=== PATIENT | female | born 1995 | race African-American/Black ===

== ENCOUNTER 2021-04-08 07:16 | Emergency (ER) | payer OTHER ==
[~2021-04-08] VITALS: Ht 165.1 cm; Wt 65.9 kg
[2021-04-08 08:40] LABS: BASO % 0.6 % (0.0-1.0); EOS % 0.8 % (0.0-3.0); HEMATOCRIT 41.6 % (36.0-47.0); HEMOGLOBIN 13.4 g/dl (12.0-15.5); LYMPH # 1.7 10^3/uL (1.5-5.0); LYMPH % 48.9 % (24.0-44.0); MEAN CORPUSCULAR HGB CONC 32.2 g/dl (32.0-36.5); MONO # 0.4 10^3/uL (0.0-0.8); MONO % 10.1 % (2.0-8.0); NEUTROPHILS # 1.4 10^3/uL (1.5-8.5); NEUTROPHILS % 39.6 % (36.0-66.0); PLATELET COUNT, AUTOMATED 207 10^3/uL (150-450); RED BLOOD COUNT 4.62 10^6/uL (4.00-5.40); WHITE BLOOD COUNT 3.6 10^3/uL (4.0-10.0)
[2021-04-08 09:00] LABS: RSV AMPLIFICATION NEGATIVE (NEGATIVE)
[2021-04-08 09:01] LABS: BLOOD UREA NITROGEN 8 MG/DL (7-18); CARBON DIOXIDE LEVEL 27 MEQ/L (21-32); CHLORIDE LEVEL 109 MEQ/L (98-107); CREATININE FOR GFR 0.72 MG/DL (0.55-1.30); GLOMERULAR FILTRATION RATE > 60.0 (>60); GLUCOSE, FASTING 84 MG/DL (70-100); POTASSIUM SERUM 4.5 MEQ/L (3.5-5.1); SODIUM LEVEL 141 MEQ/L (136-145)
--- NOTE | 2021-04-08 09:22 | REP ---
INDICATION: chills, hemoptysis. COMPARISON: No comparison chest x-ray. TECHNIQUE: Two views.. FINDINGS: The lungs are well inflated and free of infiltrate. The pleural angles are sharp. The heart size is normal. Pulmonary vasculature is not increased. No significant bony abnormality is seen. IMPRESSION: Negative chest x-ray. <Electronically signed by Guillermo Wall > 04/08/21 0919
[2021-04-08] MEDS ORDERED: NS 1,000 ML IV ONE (09:45)
[2021-04-08 10:12] LABS: HCG, SERUM QUALITATIVE NEGATIVE (NEGATIVE)
[2021-04-08] MEDS ORDERED: ISOVUE-370 76% 100ML VIAL As Ordered ONE (10:22)
--- NOTE | 2021-04-08 11:27 | REP ---
INDICATION: chest pain, hemoptysis, + d-dimer COMPARISON: None. TECHNIQUE: CT angiography of the chest after the intravenous administration of 75 cc Isovue 370 attention pulmonary arteries. FINDINGS: There is excellent visualization of the pulmonary arterial vasculature. No focal filling defects are present that would be considered consistent with acute pulmonary emboli. There is no mediastinal or hilar adenopathy. There is a small amount of soft tissue density in the anterior mediastinum splaying the anterior junction line. There are no pleural or pericardial effusions. The imaged upper abdomen and imaged osseous structures are within normal limits. Evaluation of the lung irvin shows no abnormal nodules, masses, or opacities. IMPRESSION: 1. There is no pulmonary embolism. 2. Small amount of soft tissue in the anterior mediastinum, as described above, likely representing a small amount of residual thymic tissue. <Electronically signed by Colt Neumann > 04/08/21 112
[2021-04-08] MEDS ORDERED: VENTAER INH (11:53)
[2021-04-08] MEDS ORDERED: BENZ200C70 PO (11:53)
[2021-04-08 12:14] VITALS: BP 125/72
--- NOTE | 2021-04-08 14:49 | ED PDOC ---
Post-Departure Follow-Up radiology report faxed to [facility] Jo Wing MD Apr 08, 2021 14:49
== END 2021-04-08 12:14 | disposition home or self-care (01) ==
LOC: M ED 07:16
DX: R04.2 Hemoptysis (principal)
CPT/HCPCS: 71046; 71275; 80048; 84703; 85025; 85379; 87631; 96360; 99284; Q9967

== ENCOUNTER 2021-07-24 11:59 | Emergency (ER) | payer OTHER ==
[~2021-07-24] VITALS: Ht 165.1 cm; Wt 63.1 kg
[~2021-07-24 11:59] MED LIST: BENZ200C70 PO; VENTAER INH
--- OUTSIDE RECORDS SUMMARY | 2021-07-24 12:06 | CCD | Continuity of Care Document ---
Author Author Arcelia BORREGO M.D. Organization Unknown Address [address] [place] [address] Phone [phone] Care Team Providers Care Clam Bed Worker Name Role Phone TinaSheba AUTM [phone] AUTM Unavailable Problems Description No Information Available Social History Type Date Description Comments Sex Unknown Tobacco Use Start: Unknown Patient has never smoked Smoking Status Reviewed: 06/28/21 Patient has never smoked Allergies and adverse reactions Description No Known Drug Allergies Medications Active Medications SIG Qnty Indications Ordering Provide r Date Advair Diskus 500-50mcg/Dose Aeros ol 1 puff inhaled twice a day 60units J45.40 Milvia Borrego M.D. Singulair 10mg Tablets 1 by mouth every night 30tabs J45.40 Milvia Borrego M.D. 06/28/2021 Proair HFA 108(90Base) mcg/Act Aer osol 2 puffs four times a day as needed Unknown Benzonatate 100mg Capsules take one capsule by mouth three times a day as needed for cough Unknown Vitamin D 50mcg (2000 Ut) Capsules 1 tab by mouth every day Unknown History Medications Advair Diskus 250-50mcg/Dose Aeros ol 1 puff inhaled twice a day 60units J45.40 Milvia Borrego M.D. - 06/28/2021 Pantoprazole Sodium 20mg Tablets D R 1 tab by mouth every day 14tabs J45.40 Milvia Borrego M.D. 04/29/20 21 - 06/28/2021 Immunizations Description No Information Available Vital Signs Date Vital Result Comment 06/28/2021 2:23pm BP Systolic 112 mmHg BP Diastolic 64 mmHg Heart Rate 74 /min O2 % BldC Oximetry 100 % Height 65 inches 5'5" Weight 147.12 lb BMI (Body Mass Index) 24.5 kg/m2 [place] Body Weight 125 lb Asthma Control Test 8 Weight 66.736 kg BSA (Body Surface Area) 1.74 m2 04/29/2021 10:10am BP Systolic 112 mmHg BP Diastolic 66 mmHg Heart Rate 66 /min O2 % BldC Oximetry 100 % Height 65 inches 5'5" Weight 147.00 lb BMI (Body Mass Index) 24.5 kg/m2 [place] Body Weight 125 lb Weight 66.679 kg BSA (Body Surface Area) 1.74 m2 Results Test Acquired Date Facility Test Result H/L Range Note FVL/[place] 06/28/2021 [employer] PDFReport [id number] <SEE NOTE> 1 FVC-Pred 3.91 L FVC-Pre 3.02 L FVC-%Pred-Pre 77 L FVC-LLN 3.19 L Fev1-Pred 3.38 L Fev1-Pre 2.63 L Fev1-%Pred-Pre 77 L Fev1-LLN 2.78 L Fev6-Pred 3.90 L Fev6-Pre 3.02 L Fev6-%Pred-Pre 77 L Fev6-LLN 3.20 L Uas9knn-Jrom 86 % Rli8eko-Inf 87 % Twj7onn-%Pred-Pre 101 % Imv3gtv-IQA 76 % Eal8ndk-Yvzi 100 % Mwl1mel-Baa 100 % Wqd4kbp-%Pred-Pre 100 % FEFMax-Pred 7.05 L/E/sec FEFMax-Pre 3.74 L/E/sec FEFMax-%Pred-Pre 53 L/E/sec FEFMax-LLN 5.28 L/E/sec Qnr3716-Wnuk 3.73 L/E/sec Rzz7682-Hrt 3.10 L/E/sec Zbl7153-%Pred-Pre 83 L/E/sec Eeu2737-PGA 2.45 L/E/sec ExpTime-Pre 6.33 sec Lns7kdc4-Poof 87 % Leh7cwm9-Lcc 87 % Ufd1qtb7-%Pred-Pre 100 % Lcc3gko6-HDN 78 % FVL/Ben 04/29/2021 [employer] PDFReport SEE IMAGE FVC-Pred 3.91 L FVC-Pre 2.80 L FVC-%Pred-Pre 71 L FVC-LLN 3.19 L Fev1-Pred 3.38 L Fev1-Pre 2.73 L Fev1-%Pred-Pre 80 L Fev1-LLN 2.78 L Fev6-Pred 3.90 L Fev6-Pre 2.80 L Fev6-%Pred-Pre 71 L Fev6-LLN 3.20 L Jru4hiy-Debp 86 % Ozi0xxn-Zkw 97 % Iau0vyo-%Pred-Pre 113 % Doo2hxx-MYY 76 % Ebs4jez-Ifil 100 % Pje5oiy-Qfv 100 % Jaj1roj-%Pred-Pre 100 % FEFMax-Pred 7.05 L/E/sec FEFMax-Pre 4.87 L/E/sec FEFMax-%Pred-Pre 69 L/E/sec FEFMax-LLN 5.28 L/E/sec Kbt2426-Wvhx 3.73 L/E/sec Rbd0143-Pgt 3.53 L/E/sec Vhy4757-%Pred-Pre 94 L/E/sec Rxt6911-SVD 2.45 L/E/sec ExpTime-Pre 1.91 sec Suy3ino4-Osfk 87 % Zjd9tcz8-Vhr 97 % Iaw1vwf2-%Pred-Pre 112 % Iao8mtj7-GRG 78 % 1 [id number] Procedures Date Code Description Status 04/29/2021 22234 Office/Outpatient New Moderate M DM 45-59 Minutes Completed 04/29/2021 62784 Spirometry Completed Medical Devices Description No Information Available Encounters Type Date Location Provider Dx Diagnosis Office Visit 04/29/2021 10:00a [facility] K Milvia kingston M.D. J45.40 Moderate persistent asthma, uncomplicated R91.8 Other nonspecific abnormal f inding of lung field Assessments Date Code Description Provider 06/28/2021 J45.40 Moderate persistent asthma, unco mplicated Milvia Borrego M.D. 06/28/2021 R91.8 Other nonspecific abnormal findi ng of lung field Milvia Borrego M.D. 04/29/2021 J45.40 Moderate persistent asthma, unco mplicated Milvia Borrego M.D. 04/29/2021 R91.8 Other nonspecific abnormal findi ng of lung field Milvia Borrego M.D. Plan of Treatment Future Appointment(s):* 09/27/2021 1:00 pm - Milvia Borrego M.D. at [facility] 06/28/2021 - Milvia Borrego M.D.* J45.40 Moderate persistent asthma, uncomplicated * R91.8 Other nonspecific abnormal finding of lung field * * New Medication:* Advair Diskus 500-50 mcg/Dose * Singulair 10 mg * New Labs:* Rast/Ige, Pulmonary, Ordered: 06/28/21 * CBC With Differential, Ordered: 06/28/21 * Follow up:* Follow-up in 2-3 mo with ACT Functional Status Description No Information Available Mental Status Description No Information Available Referrals Refer to Dr Reason for Referral Status Appt Date Milvia Borrego M.D. ([phone] CONSULT DX: CHEST PAIN SOB HEMOPTYSIS) Scheduled 04/29/2021 [facility], Pulmonary [address] [place], [place] [address] [phone] Milvia Borrego M.D. ([phone] OFFICE VISIT DX: CHEST RENAY N SOB HEMOPTYSIS) Scheduled 04/29/2021 [facility], Pulmonary [address] [place], [place] [address] [phone]
--- OUTSIDE RECORDS SUMMARY | 2021-07-24 12:06 | CCD | Continuity of Care Document ---
Author Author Arcelia BORREGO M.D. Organization Unknown Address [address] [place] [address] Phone [phone] Care Team Providers Care Voice Intercept Technician Name Role Phone TinaSheba AUTM [phone] AUTM Unavailable Problems Description No Information Available [...] lb BMI (Body Mass Index) 24.5 kg/m2 [place] Body Weight 125 lb Asthma Control Test 8 Weight 66.736 kg BSA (Body Surface Area) 1.74 m2 04/29/2021 10:10am BP Systolic 112 mmHg BP Diastolic 66 mmHg Heart Rate 66 /min O2 % BldC Oximetry 100 % Height 65 inches 5'5" Weight 147.00 lb BMI (Body Mass Index) 24.5 kg/m2 [place] Body Weight 125 lb Weight 66.679 kg BSA (Body Surface Area) 1.74 m2 Results Test Acquired Date Facility Test Result H/L Range Note FVL/[place] 06/28/2021 [employer] PDFReport [id number] <SEE NOTE> 1 FVC-Pred 3.91 L FVC-Pre 3.02 L FVC-%Pred-Pre 77 L FVC-LLN 3.19 L Fev1-Pred 3.38 L Fev1-Pre 2.63 L Fev1-%Pred-Pre 77 L Fev1-LLN 2.78 L Fev6-Pred 3.90 L Fev6-Pre 3.02 L Fev6-%Pred-Pre 77 L Fev6-LLN 3.20 L Hjo8kqg-Mvle 86 % Btw0atl-Cud 87 % Bwn5xte-%Pred-Pre 101 % Vtq8bci-GST 76 % Kgu6whi-Etsw 100 % Ntp6qnp-Ggb 100 % Rgf8wca-%Pred-Pre 100 % FEFMax-Pred 7.05 L/E/sec FEFMax-Pre 3.74 L/E/sec FEFMax-%Pred-Pre 53 L/E/sec FEFMax-LLN 5.28 L/E/sec Xrc1133-Zgbv 3.73 L/E/sec Iul5692-Fja 3.10 L/E/sec Exr5685-%Pred-Pre 83 L/E/sec Lng7604-LEP 2.45 L/E/sec ExpTime-Pre 6.33 sec Aea5wht5-Tcai 87 % Bst9gue5-Khq 87 % Evd8cqa6-%Pred-Pre 100 % Wyy0wil6-PSW 78 % FVL/Ben 04/29/2021 [employer] PDFReport SEE IMAGE FVC-Pred 3.91 L FVC-Pre 2.80 L FVC-%Pred-Pre 71 L FVC-LLN 3.19 L Fev1-Pred 3.38 L Fev1-Pre 2.73 L Fev1-%Pred-Pre 80 L Fev1-LLN 2.78 L Fev6-Pred 3.90 L Fev6-Pre 2.80 L Fev6-%Pred-Pre 71 L Fev6-LLN 3.20 L Pvf9phq-Rplh 86 % Yux0hjp-Uxg 97 % Kxp8izz-%Pred-Pre 113 % Ccp6swe-WES 76 % Cyr8nzf-Ecoz 100 % Ivk7gtd-Dps 100 % Oiy8xjf-%Pred-Pre 100 % FEFMax-Pred 7.05 L/E/sec FEFMax-Pre 4.87 L/E/sec FEFMax-%Pred-Pre 69 L/E/sec FEFMax-LLN 5.28 L/E/sec Oci0669-Tzqz 3.73 L/E/sec Khr8999-Tdy 3.53 L/E/sec Kqi4969-%Pred-Pre 94 L/E/sec Adn1583-JGA 2.45 L/E/sec ExpTime-Pre 1.91 sec Vln2dcm8-Vhwe 87 % Ief6pbm9-Icb 97 % Xkj9fbx2-%Pred-Pre 112 % Gzi7lqe6-UWO 78 % 1 [id number] Procedures Date Code Description Status 04/29/2021 23743 Office/Outpatient New Moderate M DM 45-59 Minutes Completed 04/29/2021 44669 Spirometry Completed Medical Devices Description No Information Available Encounters Type Date Location Provider Dx Diagnosis Office Visit 04/29/2021 10:00a [facility] K Milvia kingston M.D. J45.40 Moderate [...] 1:00 pm - Milvia Borrego M.D. at [facility] 06/28/2021 - Milvia Borrego M.D.* J45.40 [...] Referral Status Appt Date Milvia Borrego M.D. ([phone] CONSULT DX: CHEST PAIN SOB HEMOPTYSIS) Scheduled 04/29/2021 [facility], Pulmonary [address] [place], [place] [address] [phone] Milvia Borrego M.D. ([phone] OFFICE VISIT DX: CHEST RENAY N SOB HEMOPTYSIS) Scheduled 04/29/2021 [facility], Pulmonary [address] [place], [place] [id number] [phone]
--- OUTSIDE RECORDS SUMMARY | 2021-07-24 12:06 | CCD | Continuity of Care Document ---
Author Author Arcelia BORREGO M.D. Organization Unknown Address [address] [place] [address] Phone [phone] Care Team Providers Care Coffee Weigher Name Role Phone TinaSheba AUTM [phone] AUTM Unavailable Problems Description No Information Available [...] lb BMI (Body Mass Index) 24.5 kg/m2 [place] Body Weight 125 lb Asthma Control Test 8 Weight 66.736 kg BSA (Body Surface Area) 1.74 m2 04/29/2021 10:10am BP Systolic 112 mmHg BP Diastolic 66 mmHg Heart Rate 66 /min O2 % BldC Oximetry 100 % Height 65 inches 5'5" Weight 147.00 lb BMI (Body Mass Index) 24.5 kg/m2 [place] Body Weight 125 lb Weight 66.679 kg BSA (Body Surface Area) 1.74 m2 Results Test Acquired Date Facility Test Result H/L Range Note FVL/[place] 06/28/2021 [employer] PDFReport [id number] <SEE NOTE> 1 FVC-Pred 3.91 L FVC-Pre 3.02 L FVC-%Pred-Pre 77 L FVC-LLN 3.19 L Fev1-Pred 3.38 L Fev1-Pre 2.63 L Fev1-%Pred-Pre 77 L Fev1-LLN 2.78 L Fev6-Pred 3.90 L Fev6-Pre 3.02 L Fev6-%Pred-Pre 77 L Fev6-LLN 3.20 L Eoc6fws-Xdbj 86 % Ffe0ljv-Qau 87 % Dvc4arw-%Pred-Pre 101 % Dik4kon-LUC 76 % Rvg5qer-Xgpu 100 % Vgf1qgf-Jsn 100 % Vog1adm-%Pred-Pre 100 % FEFMax-Pred 7.05 L/E/sec FEFMax-Pre 3.74 L/E/sec FEFMax-%Pred-Pre 53 L/E/sec FEFMax-LLN 5.28 L/E/sec Lnn8286-Absj 3.73 L/E/sec Sut2499-Dxa 3.10 L/E/sec Wcg8464-%Pred-Pre 83 L/E/sec Xbq8762-JEM 2.45 L/E/sec ExpTime-Pre 6.33 sec Kdm6uiz0-Mqex 87 % Pas7qzp6-Vuy 87 % Paf5ohf1-%Pred-Pre 100 % Xro9ukh6-LKT 78 % FVL/Ben 04/29/2021 [employer] PDFReport SEE IMAGE FVC-Pred 3.91 L FVC-Pre 2.80 L FVC-%Pred-Pre 71 L FVC-LLN 3.19 L Fev1-Pred 3.38 L Fev1-Pre 2.73 L Fev1-%Pred-Pre 80 L Fev1-LLN 2.78 L Fev6-Pred 3.90 L Fev6-Pre 2.80 L Fev6-%Pred-Pre 71 L Fev6-LLN 3.20 L Gjr8vco-Kypu 86 % Vsx6rar-Zwv 97 % Ynw2uxs-%Pred-Pre 113 % Ljy8zdj-EXT 76 % Yev5jwp-Hvmq 100 % Xos6mio-Aer 100 % Bry8eoe-%Pred-Pre 100 % FEFMax-Pred 7.05 L/E/sec FEFMax-Pre 4.87 L/E/sec FEFMax-%Pred-Pre 69 L/E/sec FEFMax-LLN 5.28 L/E/sec Rsh4956-Mtwy 3.73 L/E/sec Iio3454-Xow 3.53 L/E/sec Iwb0582-%Pred-Pre 94 L/E/sec Xcd8408-YKU 2.45 L/E/sec ExpTime-Pre 1.91 sec Vaj3ual4-Hfpm 87 % Uxy6mlc5-Ldx 97 % Nfv6uvn6-%Pred-Pre 112 % Zoo6fqc4-GGD 78 % 1 [id number] Procedures Date Code Description Status 04/29/2021 66642 Office/Outpatient New Moderate M DM 45-59 Minutes Completed 04/29/2021 93913 Spirometry Completed Medical Devices Description No Information Available Encounters Type Date Location Provider Dx Diagnosis Office Visit 04/29/2021 10:00a [facility] K Milvia kingston M.D. J45.40 Moderate [...] 1:00 pm - Milvia Borrego M.D. at [facility] 06/28/2021 - Milvia Borrego M.D.* J45.40 [...] Referral Status Appt Date Milvia Borrego M.D. ([phone] CONSULT DX: CHEST PAIN SOB HEMOPTYSIS) Scheduled 04/29/2021 [facility], Pulmonary [address] [place], [place] [address] [phone] Milvia Borrego M.D. ([phone] OFFICE VISIT DX: CHEST RENAY N SOB HEMOPTYSIS) Scheduled 04/29/2021 [facility], Pulmonary [address] [place], [place] [address] [phone]
--- OUTSIDE RECORDS SUMMARY | 2021-07-24 12:06 | CCD | Continuity of Care Document ---
Author Author Arcelia BORREGO M.D. Organization Unknown Address [address] [place] [address] Phone [phone] Care Team Providers Care Food Service Order Clerk Name Role Phone TinaSheba AUTM [phone] AUTM Unavailable Problems Description No Information Available [...] lb BMI (Body Mass Index) 24.5 kg/m2 [place] Body Weight 125 lb Asthma Control Test 8 Weight 66.736 kg BSA (Body Surface Area) 1.74 m2 04/29/2021 10:10am BP Systolic 112 mmHg BP Diastolic 66 mmHg Heart Rate 66 /min O2 % BldC Oximetry 100 % Height 65 inches 5'5" Weight 147.00 lb BMI (Body Mass Index) 24.5 kg/m2 [place] Body Weight 125 lb Weight 66.679 kg BSA (Body Surface Area) 1.74 m2 Results Test Acquired Date Facility Test Result H/L Range Note FVL/[place] 06/28/2021 [employer] PDFReport [id number] <SEE NOTE> 1 FVC-Pred 3.91 L FVC-Pre 3.02 L FVC-%Pred-Pre 77 L FVC-LLN 3.19 L Fev1-Pred 3.38 L Fev1-Pre 2.63 L Fev1-%Pred-Pre 77 L Fev1-LLN 2.78 L Fev6-Pred 3.90 L Fev6-Pre 3.02 L Fev6-%Pred-Pre 77 L Fev6-LLN 3.20 L Xtr4fno-Zgvb 86 % Tvv8hyd-Ywi 87 % Qeb8lzt-%Pred-Pre 101 % Aqv1hrs-OUT 76 % Ome0vsi-Hyeq 100 % Ilq7ypz-Vxp 100 % Waq8ktm-%Pred-Pre 100 % FEFMax-Pred 7.05 L/E/sec FEFMax-Pre 3.74 L/E/sec FEFMax-%Pred-Pre 53 L/E/sec FEFMax-LLN 5.28 L/E/sec Ear6896-Gmeu 3.73 L/E/sec Rmy6976-Nlx 3.10 L/E/sec Ven5391-%Pred-Pre 83 L/E/sec Nfh7796-MZZ 2.45 L/E/sec ExpTime-Pre 6.33 sec Eec2tme5-Acuu 87 % Iiw3gfx8-Qvi 87 % Elw9fqk6-%Pred-Pre 100 % Rlu7wiy5-MOX 78 % FVL/Ben 04/29/2021 [employer] PDFReport SEE IMAGE FVC-Pred 3.91 L FVC-Pre 2.80 L FVC-%Pred-Pre 71 L FVC-LLN 3.19 L Fev1-Pred 3.38 L Fev1-Pre 2.73 L Fev1-%Pred-Pre 80 L Fev1-LLN 2.78 L Fev6-Pred 3.90 L Fev6-Pre 2.80 L Fev6-%Pred-Pre 71 L Fev6-LLN 3.20 L Dig0ggm-Hfgn 86 % Dei5giq-Cie 97 % Irz4ldl-%Pred-Pre 113 % Gyy1iag-DQN 76 % Fkg6gkn-Ljqz 100 % Hfg3kxz-Dml 100 % Xvf1ueg-%Pred-Pre 100 % FEFMax-Pred 7.05 L/E/sec FEFMax-Pre 4.87 L/E/sec FEFMax-%Pred-Pre 69 L/E/sec FEFMax-LLN 5.28 L/E/sec Tjn3267-Tojg 3.73 L/E/sec Unz9325-Rqy 3.53 L/E/sec Zoj2572-%Pred-Pre 94 L/E/sec Rqy6509-TWG 2.45 L/E/sec ExpTime-Pre 1.91 sec Dmo6iaw4-Epyr 87 % Awx8eev7-Zyb 97 % Afj4bnh6-%Pred-Pre 112 % Gsn3sal7-UGK 78 % 1 [id number] Procedures Date Code Description Status 06/28/2021 52030 Office/Outpatient Established Mo d MDM 30-39 Min Completed 06/28/2021 66025 Spirometry Completed 04/29/2021 40802 Office/Outpatient New Moderate M DM 45-59 Minutes Completed 04/29/2021 10039 Spirometry Completed Medical Devices Description No Information Available Encounters Type Date Location Provider Dx Diagnosis Office Visit 06/28/2021 2:30p [facility] Milvia Ag M.D. J45.40 Moderate persistent asthma, uncomplicated R91.8 Other nonspecific abnormal f inding of lung field Office Visit 04/29/2021 10:00a [facility] Milvia Ag M.D. J45.40 Moderate persistent asthma, uncomplicated R91.8 [...] 1:00 pm - Milvia Borrego M.D. at [facility] 06/28/2021 - Milvia Borrego M.D.* J45.40 Moderate persistent asthma, uncomplicated * R91.8 Other nonspecific abnormal finding of lung field * * New Medication:* Advair Diskus 500-50 mcg/Dose * Singulair 10 mg * New Labs:* Rast/Ige, Pulmonary, Ordered: 06/28/21 * CBC With Differential, Ordered: 06/28/21 * Comments:* 06/28/21 OFFICE VISIT (page 3 of 3) * Follow up:* Follow-up in 2-3 mo with ACT Functional Status Description No Information Available Mental Status Description No Information Available Referrals Refer to Reason for Referral Status Appt Date Milvia Borrego M.D. ([phone] CONSULT DX: CHEST PAIN SOB HEMOPTYSIS) Scheduled 04/29/2021 [facility], Pulmonary [address] [place], [place] [address] [phone] Milvia Borrego M.D. ([phone] OFFICE VISIT DX: CHEST RENAY N SOB HEMOPTYSIS) Scheduled 04/29/2021 [facility], Pulmonary [address] [place], [place] [address] [phone]
--- OUTSIDE RECORDS SUMMARY | 2021-07-24 12:06 | CCD | Continuity of Care Document ---
Author Author Arcelia BORREGO M.D. Organization Unknown Address [address] [place] [address] Phone [phone] Care Team Providers Care Call Center Representative Name Role Phone TinaSheba AUTM [phone] AUTM Unavailable Problems Description No Information Available Social History Type Date Description Comments Sex Unknown Tobacco Use Start: Unknown Patient has never smoked Smoking Status Reviewed: 04/29/21 Patient has never smoked Allergies, Adverse Reactions, Alerts Description No Known Drug Allergies Medications Active Medications SIG Qnty Indications Ordering Provide r Date Advair Diskus 250-50mcg/Dose Aeros ol 1 puff inhaled twice a day 60units J45.40 Milvia Borrego M.D. Pantoprazole Sodium 20mg Tablets D R 1 tab by mouth every day 14tabs J45.40 Milvia Borrego M.D. 04/29/20 Cetirizine HCL 10mg Tablets 1 by mouth every day Unknown Proair HFA 108(90Base) mcg/Act Aer osol 2 puffs four times a day as needed Unknown Benzonatate 100mg Capsules take one capsule by mouth three times a day as needed for cough Unknown Immunizations Description No Information Available Vital Signs Date Vital Result Comment 04/29/2021 10:10am BP Systolic 112 mmHg BP Diastolic 66 mmHg Heart Rate 66 /min O2 % BldC Oximetry 100 % Height 65 inches 5'5" Weight 147.00 lb BMI (Body Mass Index) 24.5 kg/m2 [place] Body Weight 125 lb Weight 66.679 kg BSA (Body Surface Area) 1.74 m2 Results Test Acquired Date Facility Test Result H/L Range Note FVL/[place] 04/29/2021 [employer] PDFReport SEE IMAGE FVC-Pred 3.91 L FVC-Pre 2.80 L FVC-%Pred-Pre 71 L FVC-LLN 3.19 L Fev1-Pred 3.38 L Fev1-Pre 2.73 L Fev1-%Pred-Pre 80 L Fev1-LLN 2.78 L Fev6-Pred 3.90 L Fev6-Pre 2.80 L Fev6-%Pred-Pre 71 L Fev6-LLN 3.20 L Sbg1nda-Rxrq 86 % Ygo4tbr-Jlt 97 % Ttc1iwi-%Pred-Pre 113 % Dza3bij-XTN 76 % Nhh1dab-Ukvf 100 % Pey6mat-Jul 100 % Maq6svq-%Pred-Pre 100 % FEFMax-Pred 7.05 L/E/sec FEFMax-Pre 4.87 L/E/sec FEFMax-%Pred-Pre 69 L/E/sec FEFMax-LLN 5.28 L/E/sec Yrd8264-Iwuo 3.73 L/E/sec Tcx6543-Wsp 3.53 L/E/sec Ffw3632-%Pred-Pre 94 L/E/sec Skk2240-CYH 2.45 L/E/sec ExpTime-Pre 1.91 sec Yud3kyy9-Gvgq 87 % Kyh9xfk2-Afa 97 % Jfz5ftp7-%Pred-Pre 112 % Lie9oya6-MRJ 78 % Procedures Date Code Description Status 04/29/2021 19262 Office/Outpatient New Moderate M DM 45-59 Minutes Completed 04/29/2021 96113 Spirometry Completed Medical Devices Description No Information Available Encounters Type Date Location Provider Dx Diagnosis Office Visit 04/29/2021 10:00a [facility] K Milvia kingston M.D. J45.40 Moderate persistent asthma, uncomplicated R91.8 Other nonspecific abnormal f inding of lung field Assessments Date Code Description Provider 04/29/2021 J45.40 Moderate persistent asthma, unco mplicated Milvia Borrego M.D. 04/29/2021 R91.8 Other nonspecific abnormal findi ng of lung field Milvia Borrego M.D. Plan of Treatment Future Appointment(s):* 06/30/2021 11:00 am - Milvia Borrego M.D. at [facility] 04/29/2021 - Milvia Borrego M.D.* J45.40 Moderate persistent asthma, uncomplicated * R91.8 Other nonspecific abnormal finding of lung field * * New Medication:* Advair Diskus 250-50 mcg/Dose * Pantoprazole Sodium 20 mg * New Labs:* Flow Volume Loop/Spirometry, Ordered: 04/29/21 * Follow up:* Follow-up in 2 mo with ACT and spirometry Functional Status Description No Information Available Mental Status Description No Information Available Referrals Refer to Dr Reason for Referral Status Appt Date Milvia Borrego M.D. ([phone] CONSULT DX: CHEST PAIN SOB HEMOPTYSIS) Scheduled 04/29/2021 [facility], Pulmonary [address] [place], [place] [address] [phone] Milvia Borrego M.D. ([phone] OFFICE VISIT DX: CHEST RENAY N SOB HEMOPTYSIS) Scheduled 04/29/2021 [facility], Pulmonary [address] [place] [address] [phone]
--- OUTSIDE RECORDS SUMMARY | 2021-07-24 12:06 | CCD | Continuity of Care Document ---
Author Author Arcelia BORREGO M.D. Organization Unknown Address [address] [place] [address] Phone [phone] Care Team Providers Care Clinical Care Manager Name Role Phone TinaSheba AUTM [phone] AUTM Unavailable Problems Description No Information Available [...] lb BMI (Body Mass Index) 24.5 kg/m2 [place] Body Weight 125 lb Asthma Control Test 8 Weight 66.736 kg BSA (Body Surface Area) 1.74 m2 04/29/2021 10:10am BP Systolic 112 mmHg BP Diastolic 66 mmHg Heart Rate 66 /min O2 % BldC Oximetry 100 % Height 65 inches 5'5" Weight 147.00 lb BMI (Body Mass Index) 24.5 kg/m2 [place] Body Weight 125 lb Weight 66.679 kg BSA (Body Surface Area) 1.74 m2 Results Test Acquired Date Facility Test Result H/L Range Note FVL/[place] 06/28/2021 [facility] [facility] [id number] <SEE NOTE> 1 FVC-Pred 3.91 L FVC-Pre 3.02 L FVC-%Pred-Pre 77 L FVC-LLN 3.19 L Fev1-Pred 3.38 L Fev1-Pre 2.63 L Fev1-%Pred-Pre 77 L Fev1-LLN 2.78 L Fev6-Pred 3.90 L Fev6-Pre 3.02 L Fev6-%Pred-Pre 77 L Fev6-LLN 3.20 L Ohx4zlt-Yxjk 86 % Wxl0rxe-Fcy 87 % Gqa7ddp-%Pred-Pre 101 % Wak6ujd-GQS 76 % Rqc9uey-Xpnz 100 % Iow2pbh-Bpm 100 % Aoj6alg-%Pred-Pre 100 % FEFMax-Pred 7.05 L/E/sec FEFMax-Pre 3.74 L/E/sec FEFMax-%Pred-Pre 53 L/E/sec FEFMax-LLN 5.28 L/E/sec Izn0254-Penn 3.73 L/E/sec Btj1661-Wit 3.10 L/E/sec Ajh6910-%Pred-Pre 83 L/E/sec Jhz9204-PCO 2.45 L/E/sec ExpTime-Pre 6.33 sec Pkj8pwu6-Ufoo 87 % Lol0jdo2-Vac 87 % Iue7rav1-%Pred-Pre 100 % Eso6nyo4-UAU 78 % FVL/[place] 04/29/2021 [facility] SEE IMAGE FVC-Pred 3.91 L FVC-Pre 2.80 L FVC-%Pred-Pre 71 L FVC-LLN 3.19 L Fev1-Pred 3.38 L Fev1-Pre 2.73 L Fev1-%Pred-Pre 80 L Fev1-LLN 2.78 L Fev6-Pred 3.90 L Fev6-Pre 2.80 L Fev6-%Pred-Pre 71 L Fev6-LLN 3.20 L Twi4wor-Rebz 86 % Hwz9bfk-Nre 97 % Iqm8ntl-%Pred-Pre 113 % Acc2lbn-AHY 76 % Cfs8kux-Qrts 100 % Fee1tgs-Zhk 100 % Zvs8uqx-%Pred-Pre 100 % FEFMax-Pred 7.05 L/E/sec FEFMax-Pre 4.87 L/E/sec FEFMax-%Pred-Pre 69 L/E/sec FEFMax-LLN 5.28 L/E/sec Lvb1175-Yxoe 3.73 L/E/sec Qix0649-Bsg 3.53 L/E/sec Ovi4991-%Pred-Pre 94 L/E/sec Gao0311-XOM 2.45 L/E/sec ExpTime-Pre 1.91 sec Umt5mwv5-Izao 87 % Ikn5oio5-Syx 97 % Aze1osk3-%Pred-Pre 112 % Vkc9fkx9-VME 78 % 1 [id number] Procedures Date Code Description Status 04/29/2021 85675 Office/Outpatient New Moderate M DM 45-59 Minutes Completed 04/29/2021 40283 Spirometry Completed Medical Devices Description No Information Available Encounters Type Date Location Provider Dx Diagnosis Office Visit 04/29/2021 10:00a [facility] K Milvia kingston M.D. J45.40 Moderate [...] 1:00 pm - Milvia Borrego M.D. at [facility] 06/28/2021 - Milvia Borrego M.D.* J45.40 [...] Referral Status Appt Date Milvia Borrego M.D. ([phone] CONSULT DX: CHEST PAIN SOB HEMOPTYSIS) Scheduled 04/29/2021 [facility], Pulmonary [address] [place], [place] [id number] [phone] Milvia Borrego M.D. ([phone] OFFICE VISIT DX: CHEST RENAY N SOB HEMOPTYSIS) Scheduled 04/29/2021 [facility], Pulmonary [address] [place], [place] [address] [phone]
--- OUTSIDE RECORDS SUMMARY | 2021-07-24 12:06 | CCD ---
Continuity of Care Document (CCD) Created on: 04/29/2021 Arcelia Vasquez External Reference #: [id number] : 1995 Sex: Female Author Author Arcelia BORREGO M.D. Organization Unknown Address [address] [place] [address] Phone [phone] Care Team Providers Care Marketing Programs Specialist Name Role Phone TinaSheba AUTM [phone] AUTM Unavailable Problems Description No Information Available [...] a day 60units J45.40 Milvia Borrego M.D. Cetirizine HCL 10mg Tablets 1 by mouth [...] lb BMI (Body Mass Index) 24.5 kg/m2 [place] Body Weight 125 lb Weight 66.679 kg BSA (Body Surface Area) 1.74 m2 Results Test Acquired Date Facility Test Result H/L Range Note FVL/[place] 04/29/2021 [facility] SEE IMAGE FVC-Pred 3.91 L FVC-Pre 2.80 L FVC-%Pred-Pre 71 L FVC-LLN 3.19 L Fev1-Pred 3.38 L Fev1-Pre 2.73 L Fev1-%Pred-Pre 80 L Fev1-LLN 2.78 L Fev6-Pred 3.90 L Fev6-Pre 2.80 L Fev6-%Pred-Pre 71 L Fev6-LLN 3.20 L Lqf9fhh-Rnws 86 % Joi9avu-Rsh 97 % Gfq5wna-%Pred-Pre 113 % Rvt0par-HAN 76 % Asv7paj-Kuax 100 % Nwo4qmf-Jri 100 % Agh8gcs-%Pred-Pre 100 % FEFMax-Pred 7.05 L/E/sec FEFMax-Pre 4.87 L/E/sec FEFMax-%Pred-Pre 69 L/E/sec FEFMax-LLN 5.28 L/E/sec Ahd1896-Dqqf 3.73 L/E/sec Gcu0185-Gog 3.53 L/E/sec Ugi5013-%Pred-Pre 94 L/E/sec Qrh9311-CKQ 2.45 L/E/sec ExpTime-Pre 1.91 sec Exs1yfd0-Gcvl 87 % Ifv6azc9-Oys 97 % Uvu8mhh4-%Pred-Pre 112 % Ltn2uco4-UUU 78 % Procedures Description No Information Available Medical Devices Description No Information Available Encounters Description No Information Available Assessments Date Code Description Provider 04/29/2021 J45.40 Moderate persistent asthma, unco mplicated Milvia Borrego M.D. 04/29/2021 R91.8 Other nonspecific abnormal findi ng of lung field Milvia Borrego M.D. Plan of Treatment Future Appointment(s):* 06/30/2021 11:00 am - Milvia Borrego M.D. at [facility] 04/29/2021 - Milvia Borrego M.D.* J45.40 Moderate persistent asthma, uncomplicated * R91.8 Other nonspecific abnormal finding of lung field * * New Medication:* Advair Diskus 250-50 mcg/Dose * New Labs:* Flow Volume Loop/Spirometry, Ordered: 04/29/21 * Follow up:* Follow-up in 2 mo with ACT and spirometry Functional Status Description No Information Available Mental Status Description No Information Available Referrals Refer to Reason for Referral Status Appt Date Milvia Borrego M.D. ([id number] CONSULT DX: CHEST PAIN SOB HEMOPTYSIS) Scheduled 04/29/2021 [facility], Pulmonary [address] [place] [id number] [phone] Milvia Borrego M.D. ([phone] OFFICE VISIT DX: CHEST RENAY N SOB HEMOPTYSIS) Scheduled 04/29/2021 [facility], Pulmonary [address] [place], [place] [id number] [phone]
--- OUTSIDE RECORDS SUMMARY | 2021-07-24 12:06 | CCD | Continuity of Care Document ---
Author Author Arcelia BORREGO M.D. Organization Unknown Address [address] [place] [address] Phone [phone] Care Team Providers Care Manager Policy Name Role Phone TinaSheba AUTM [phone] AUTM Unavailable Problems Description No Information Available [...] lb BMI (Body Mass Index) 24.5 kg/m2 [place] Body Weight 125 lb Asthma Control Test 8 Weight 66.736 kg BSA (Body Surface Area) 1.74 m2 04/29/2021 10:10am BP Systolic 112 mmHg BP Diastolic 66 mmHg Heart Rate 66 /min O2 % BldC Oximetry 100 % Height 65 inches 5'5" Weight 147.00 lb BMI (Body Mass Index) 24.5 kg/m2 [place] Body Weight 125 lb Weight 66.679 kg BSA (Body Surface Area) 1.74 m2 Results Test Acquired Date Facility Test Result H/L Range Note FVL/[place] 06/28/2021 [employer] [facility] [id number] <SEE NOTE> 1 FVC-Pred 3.91 L FVC-Pre 3.02 L FVC-%Pred-Pre 77 L FVC-LLN 3.19 L Fev1-Pred 3.38 L Fev1-Pre 2.63 L Fev1-%Pred-Pre 77 L Fev1-LLN 2.78 L Fev6-Pred 3.90 L Fev6-Pre 3.02 L Fev6-%Pred-Pre 77 L Fev6-LLN 3.20 L Wiw1mre-Cuzx 86 % Enu1gwh-Prz 87 % Utx7nfs-%Pred-Pre 101 % Qfk8wcl-SML 76 % Apt9orz-Hozt 100 % Fhd0ehj-Zyk 100 % Ozf6bzc-%Pred-Pre 100 % FEFMax-Pred 7.05 L/E/sec FEFMax-Pre 3.74 L/E/sec FEFMax-%Pred-Pre 53 L/E/sec FEFMax-LLN 5.28 L/E/sec Tjo9157-Fklj 3.73 L/E/sec Dgr1385-Bac 3.10 L/E/sec Pmb1229-%Pred-Pre 83 L/E/sec Erk5213-ETG 2.45 L/E/sec ExpTime-Pre 6.33 sec Vhs8rbb2-Qpqg 87 % Rkf5qle8-Prp 87 % Pwx2huo2-%Pred-Pre 100 % Lfr1kpr1-VVY 78 % FVL/[place] 04/29/2021 [employer] [facility] SEE IMAGE FVC-Pred 3.91 L FVC-Pre 2.80 L FVC-%Pred-Pre 71 L FVC-LLN 3.19 L Fev1-Pred 3.38 L Fev1-Pre 2.73 L Fev1-%Pred-Pre 80 L Fev1-LLN 2.78 L Fev6-Pred 3.90 L Fev6-Pre 2.80 L Fev6-%Pred-Pre 71 L Fev6-LLN 3.20 L Dzg9xnx-Sdgl 86 % Dkb5kxj-Oub 97 % Wcf7kef-%Pred-Pre 113 % Udn5zlc-SAZ 76 % Lwt6sul-Kweq 100 % Gcr5nko-Tmr 100 % Wqb4gwp-%Pred-Pre 100 % FEFMax-Pred 7.05 L/E/sec FEFMax-Pre 4.87 L/E/sec FEFMax-%Pred-Pre 69 L/E/sec FEFMax-LLN 5.28 L/E/sec Ziq8360-Hbyn 3.73 L/E/sec Ezq3806-Wlf 3.53 L/E/sec Smu6922-%Pred-Pre 94 L/E/sec Cvu5898-KDO 2.45 L/E/sec ExpTime-Pre 1.91 sec Vdw4wri9-Ichz 87 % Bnf7meg0-Olk 97 % Wpm7hpj4-%Pred-Pre 112 % Syr1uxq8-YSX 78 % 1 [id number] Procedures Date Code Description Status 04/29/2021 07117 Office/Outpatient New Moderate M DM 45-59 Minutes Completed 04/29/2021 10798 Spirometry Completed Medical Devices Description No Information Available Encounters Type Date Location Provider Dx Diagnosis Office Visit 04/29/2021 10:00a [facility] K Milvia kingston M.D. J45.40 Moderate [...] 1:00 pm - Milvia Borrego M.D. at [facility] 06/28/2021 - Milvia Borrego M.D.* J45.40 [...] Referral Status Appt Date Milvia Borrego M.D. ([phone] CONSULT DX: CHEST PAIN SOB HEMOPTYSIS) [facility] [address] [place], [place] [address] [phone] Milvia Borrego M.D. ([phone] OFFICE VISIT DX: CHEST RENAY N SOB HEMOPTYSIS) Scheduled [facility]/2021 [facility] [address] [place], [place] [id number] [phone]
--- OUTSIDE RECORDS SUMMARY | 2021-07-24 12:06 | CCD | Continuity of Care Document ---
Author Author Arcelia BORREGO M.D. Organization Unknown Address [address] [place] [address] Phone [phone] Care Team Providers Care Special Officer Name Role Phone TinaSheba AUTM [phone] AUTM Unavailable Problems Description No Information Available [...] lb BMI (Body Mass Index) 24.5 kg/m2 [place] Body Weight 125 lb Weight 66.679 kg BSA (Body Surface Area) 1.74 m2 Results Test Acquired Date Facility Test Result H/L Range Note FVL/[place] 04/29/2021 [facility] SEE IMAGE FVC-Pred 3.91 L FVC-Pre 2.80 L FVC-%Pred-Pre 71 L FVC-LLN 3.19 L Fev1-Pred 3.38 L Fev1-Pre 2.73 L Fev1-%Pred-Pre 80 L Fev1-LLN 2.78 L Fev6-Pred 3.90 L Fev6-Pre 2.80 L Fev6-%Pred-Pre 71 L Fev6-LLN 3.20 L Ohg7vxo-Ggma 86 % Fpj1uhg-Mwh 97 % Sqa1nsz-%Pred-Pre 113 % Nus9cuw-HPB 76 % Zei3ejc-Isgk 100 % Hnr7hsy-Knc 100 % Bsh6ump-%Pred-Pre 100 % FEFMax-Pred 7.05 L/E/sec FEFMax-Pre 4.87 L/E/sec FEFMax-%Pred-Pre 69 L/E/sec FEFMax-LLN 5.28 L/E/sec Qqk3076-Nuom 3.73 L/E/sec Jce4903-Nto 3.53 L/E/sec Xay5256-%Pred-Pre 94 L/E/sec Qaj6365-ZYT 2.45 L/E/sec ExpTime-Pre 1.91 sec Gpr9vgs2-Uetg 87 % Wrv8cjc6-Jbo 97 % Dbs6hbp2-%Pred-Pre 112 % Ald5jns5-VTK 78 % Procedures Description No Information Available Medical Devices Description No Information Available Encounters Description No Information Available Assessments Date Code Description Provider 04/29/2021 J45.40 Moderate persistent asthma, unco mplicated Milvia Borrego M.D. 04/29/2021 R91.8 Other nonspecific abnormal findi ng of lung field Milvia Borrego M.D. Plan of Treatment Future Appointment(s):* 06/30/2021 11:00 am - Milvia Borrego M.D. at [facility] 04/29/2021 - Milvia Borrego M.D.* J45.40 [...] Referral Status Appt Date Milvia Borrego M.D. ([phone] CONSULT DX: CHEST PAIN SOB HEMOPTYSIS) Scheduled 04/29/2021 [facility], Pulmonary [address] [place], [place] [address] [phone] Milvia Borrego M.D. ([phone] OFFICE VISIT DX: CHEST RENAY N SOB HEMOPTYSIS) Scheduled 04/29/2021 [facility], Pulmonary [address] [place], [place] [address] [phone]
--- OUTSIDE RECORDS SUMMARY | 2021-07-24 12:06 | CCD | Continuity of Care Document ---
Author Author Arcelia BORREGO M.D. Organization Unknown Address [address] [place] [address] Phone [phone] Care Team Providers Care Armed Security Professional Name Role Phone TinaSheba AUTM [phone] AUTM Unavailable Problems Description No Information Available [...] lb BMI (Body Mass Index) 24.5 kg/m2 [place] Body Weight 125 lb Asthma Control Test 8 Weight 66.736 kg BSA (Body Surface Area) 1.74 m2 04/29/2021 10:10am BP Systolic 112 mmHg BP Diastolic 66 mmHg Heart Rate 66 /min O2 % BldC Oximetry 100 % Height 65 inches 5'5" Weight 147.00 lb BMI (Body Mass Index) 24.5 kg/m2 [place] Body Weight 125 lb Weight 66.679 kg BSA (Body Surface Area) 1.74 m2 Results Test Acquired Date Facility Test Result H/L Range Note FVL/[place] 06/28/2021 [employer] [facility] [id number] <SEE NOTE> 1 FVC-Pred 3.91 L FVC-Pre 3.02 L FVC-%Pred-Pre 77 L FVC-LLN 3.19 L Fev1-Pred 3.38 L Fev1-Pre 2.63 L Fev1-%Pred-Pre 77 L Fev1-LLN 2.78 L Fev6-Pred 3.90 L Fev6-Pre 3.02 L Fev6-%Pred-Pre 77 L Fev6-LLN 3.20 L Pgl6vsv-Tvvp 86 % Erc8qct-Abo 87 % Wae6sax-%Pred-Pre 101 % Zdc2uda-KBL 76 % Bnh9edy-Yavg 100 % Bqr5cid-Mxu 100 % Eon7chv-%Pred-Pre 100 % FEFMax-Pred 7.05 L/E/sec FEFMax-Pre 3.74 L/E/sec FEFMax-%Pred-Pre 53 L/E/sec FEFMax-LLN 5.28 L/E/sec Ybu3935-Lsaf 3.73 L/E/sec Euu8184-Iib 3.10 L/E/sec Hlm3858-%Pred-Pre 83 L/E/sec Tjo2621-IJK 2.45 L/E/sec ExpTime-Pre 6.33 sec Sih2ctr0-Acwh 87 % Upd9lpb8-Hou 87 % Hlt3itj7-%Pred-Pre 100 % Eni2hmj0-UUR 78 % FVL/[place] 04/29/2021 [employer] [facility] SEE IMAGE FVC-Pred 3.91 L FVC-Pre 2.80 L FVC-%Pred-Pre 71 L FVC-LLN 3.19 L Fev1-Pred 3.38 L Fev1-Pre 2.73 L Fev1-%Pred-Pre 80 L Fev1-LLN 2.78 L Fev6-Pred 3.90 L Fev6-Pre 2.80 L Fev6-%Pred-Pre 71 L Fev6-LLN 3.20 L Vvz0ata-Gqyg 86 % Lbl3ous-Qtr 97 % Guo9ghz-%Pred-Pre 113 % Hpb0zun-NVQ 76 % Pud6veu-Kpup 100 % Qfx7knf-Gcj 100 % Ief8pbe-%Pred-Pre 100 % FEFMax-Pred 7.05 L/E/sec FEFMax-Pre 4.87 L/E/sec FEFMax-%Pred-Pre 69 L/E/sec FEFMax-LLN 5.28 L/E/sec Mks1122-Wzdd 3.73 L/E/sec Dar4057-Lbr 3.53 L/E/sec Fjn1196-%Pred-Pre 94 L/E/sec Smz3002-HYI 2.45 L/E/sec ExpTime-Pre 1.91 sec Vue8htu8-Lqkx 87 % Lkl0khj6-Ljq 97 % Jpg3dvn8-%Pred-Pre 112 % Lbz6dkv8-DOJ 78 % 1 [id number] Procedures Date Code Description Status 04/29/2021 98519 Office/Outpatient New Moderate M DM 45-59 Minutes Completed 04/29/2021 45164 Spirometry Completed Medical Devices Description No Information Available Encounters Type Date Location Provider Dx Diagnosis Office Visit 04/29/2021 10:00a [facility] K Milvia kingston M.D. J45.40 Moderate [...] 1:00 pm - Milvia Borrego M.D. at [facility] 06/28/2021 - Milvia Borrego M.D.* J45.40 [...] Referral Status Appt Date Milvia Borrego M.D. ([phone] CONSULT DX: CHEST PAIN SOB HEMOPTYSIS) Scheduled 04/29/2021 [facility], Pulmonary [address] [place], [place] [id number] [phone] Milvia Borrego M.D. ([phone] OFFICE VISIT DX: CHEST RENAY N SOB HEMOPTYSIS) Scheduled 04/29/2021 [facility], Pulmonary [address] [place], [place] [address] [phone]
--- OUTSIDE RECORDS SUMMARY | 2021-07-24 12:07 | CCD ---
Author Author [facility] Organization [facility] Address Unknown Phone Unavailable Care Team Providers Care Insurance Consultant Name Role Phone Milvia Borrego MD Unavailable Unavailable Milvia Borrego MD Unavailable Unavailable Milvia Borrego MD Unavailable Unavailable Milvia Borrego MD Unavailable Unavailable Milvia Borrego MD Unavailable Unavailable Milvia Borrego MD Unavailable Unavailable Milvia Borrego MD Unavailable Unavailable Milvia Borrego MD Unavailable Unavailable Milvia Borrego MD Unavailable Unavailable Milvia Borrego MD Unavailable Unavailable Milvia Borrego MD Unavailable Unavailable Milvia Borrego MD Unavailable Unavailable Milvia Borrego MD Unavailable Unavailable Milvia Borrego MD Unavailable Unavailable Milvia Borrego MD Unavailable Unavailable Milvia Borrego MD Unavailable Unavailable Milvia Borrego MD Unavailable Unavailable Milvia Borrego MD Unavailable Unavailable Milvia Borrego MD Unavailable Unavailable Milvia Borrego MD Unavailable Unavailable Milvia Borrego MD Unavailable Unavailable Milvia Borrego MD Unavailable Unavailable Milvia Borrego MD Unavailable Unavailable Milvia Borrego MD Unavailable Unavailable Milvia Borrego MD Unavailable Unavailable Milvia Borrego MD Unavailable Unavailable Milvia Borrego MD Unavailable Unavailable Milvia Borrego MD Unavailable Unavailable Milvia Borrego MD Unavailable Unavailable Milvia Borrego MD Unavailable Unavailable Re-disclosure Warning The records that you are about to access may contain information from federally-assisted alcohol or drug abuse programs. If such information is present, then the following federally mandated warning applies: This information has been disclosed to you from records protected by federal confidentiality rules (42 CFR part 2). The federal rules prohibit you from making any further disclosure of this information unless further disclosure is expressly permitted by the written consent of the person to whom it pertains or as otherwise permitted by 42 CFR part 2. A general authorization for the release of medical or other information is NOT sufficient for this purpose. The Federal rules restrict any use of the information to criminally investigate or prosecute any alcohol or drug abuse patient.The records that you are about to access may contain highly sensitive health information, the redisclosure of which is protected by Article 27-F of the [facility] Public Health law. If you continue you may have access to information: Regarding HIV / AIDS; Provided by facilities licensed or operated by the [facility] Office of Mental Health; or Provided by the [facility] Office for People With Developmental Disabilities. If such information is present, then the following [facility] mandated warning applies: This information has been disclosed to you from confidential records which are protected by state law. State law prohibits you from making any further disclosure of this information without the specific written consent of the person to whom it pertains, or as otherwise permitted by law. Any unauthorized further disclosure in violation of state law may result in a fine or mcc sentence or both. A general authorization for the release of medical or other information is NOT sufficient authorization for further disc losure. Encounters Encounter Providers Location Date Indications Data Source(s ) Outpatient Attender: Milvia Archuleta/Emmanuel kc 06/28/2021 02:30:00 PM EDT [facility] ([facility], ) Outpatient Attender: Milvia Archuleta/Emmanuel kc 04/29/2021 10:00:00 AM EDT [facility] ([facility], ) Immunizations Vaccine Date Status Description Data Source(s) COVID-19 VACCINE Moderna 06/07/2021 12:00:00 AM EDT completed [facility] Vaccine Series Complete: YESThis Data wa s Submitted to [facility] Via [employer]. COVID-19 VACCINE Moderna 05/10/2021 12:00:00 AM EDT completed [facility] Vaccine Series Complete: NOThis Data was Submitted to [facility] Via [employer]. Medications Medication Brand Name Start Date Product Form Dose Route Admi nistrative Instructions Pharmacy Instructions Status Indications Reaction Description Data Source(s) montelukast 10 MG Oral Tablet [Singulair] Singulair 2020 12:00:00 AM EDT ORAL active MED[facility] ( [facility]) 60 ACTUAT Fluticasone propionate 0.5 MG/ ACTUAT / salmeterol 0.05 MG/ACTUAT Dry Powder Inhaler [Advair] Advair Diskus 06/28/2021 12:00:00 AM EDT RESPIRATORY active MED[facility] ([facility]) pantoprazole 20 MG Delayed Release Oral Tablet Pantoprazole Sodium 04/29/2021 12:00:00 AM EDT ORAL completed [facility] ([facility]) 60 ACTUAT Fluticasone propionate 0.25 MG /ACTUAT / salmeterol 0.05 MG/ACTUAT Dry Powder Inhaler [Advair] Advair Diskus 04/29/2021 12:00:00 AM EDT RESPIRATORY completed [facility] ([facility]) Insurance Providers Payer name Policy type / Coverage type Policy ID Covered green party ID Covered green party's relationship to campbell Policy Campbell Plan Information [facility] ACTIVE DUTY [id number] Problems, Conditions, and Diagnoses No Information Surgeries/Procedures Procedure Description Date Indications Data Source(s) [facility]pirometry 06/28/2021 12:00:00 [facility] OUTPATIENT VISIT 25 MINUTES 06/28/2021 12:00:00 AM EDT [facility] ([facility]) Spirometry 04/29/2021 12:00:00 [facility] OFF[facility] OUTPATIENT NEW 45 MINUTES 04/29/2021 12:00:00 A M EDT MED[facility] ([facility]) Results ID Date Data Source [id number] 06/28/2021 02:23:00 PM EDT [facility] ([facility]) Name Value Range Interpretation Code Description Data Love rce(s) Supporting Document(s) PDFReport Laboratory test result MEDENT ([facility]) [id number] FVC-Pre 3.02 L MED[facility] ([facility]) FVC-Pred 3.91 L MED[facility] ([facility], ) FVC-%Pred-Pre 77 L [facility] ([facility], ) FVC-LLN 3.19 L [facility] ([facility], ) Fev1-Pre 2.63 L [facility] ([facility], ) Fev1-Pred 3.38 L [facility] ([facility], ) Fev1-%Pred-Pre 77 L MED[facility] ([facility], ) Fev1-LLN 2.78 L [facility] ([facility], ) Fev6-Pred 3.90 L [facility] ([facility], ) Fev6-Pre 3.02 L [facility] ([facility], ) Fev6-%Pred-Pre 77 L [facility] ([facility], ) Fev6-LLN 3.20 L [facility] ([facility], ) Ptf7pbz-Lsoe 86 % MED[facility] ([facility], ) Lfz9vpt-Ffa 87 % [facility] ([facility], ) Xib6lmv-%Pred-Pre 101 % [facility] ([facility]) Mfl6gfd-CCN 76 % [facility] ([facility]) Qay0iqx-Crz 100 % [facility] ([facility]) Gkt4btf-%Pred-Pre 100 % [facility] ([facility]) Xur9job-Odfv 100 % [facility] ([facility], ) FEFMax-Pred 7.05 L/E/sec MED[facility] ([facility], ) FEFMax-Pre 3.74 L/E/sec [facility] ([facility], ) FEFMax-%Pred-Pre 53 L/E/sec [facility] ([facility]) Pxy2401-Kqau 3.73 L/E/sec [facility] ([facility]) FEFMax-LLN 5.28 L/E/sec [facility] ([facility], ) Onn8730-Yja 3.10 L/E/sec [facility] ([facility]) ExpTime-Pre 6.33 sec [facility] ([facility]) Iaj2524-OAC 2.45 L/E/sec [facility] ([facility]) Zmn7574-%Pred-Pre 83 L/E/sec [facility] ([facility]) Jei7jbe4-%Pred-Pre 100 % [facility] ([facility]) Jxf3tuy9-Hwh 87 % [facility] ([facility]) Sjj8lxs1-Msob 87 % [facility] ([facility]) Oiw9oix7-SKN 78 % [facility] ([facility]) ID Date Data Source [id number] 04/29/2021 09:45:00 AM EDT [facility] ([facility]) Name Value Range Interpretation Code Description Data Love rce(s) Supporting Document(s) FVC-Pred 3.91 L [facility] ([facility]) FVC-Pre 2.80 L [facility] ([facility]) PDFReport Laboratory test result MED[facility] ([facility]) Fev1-Pred 3.38 L [facility] ([facility]) FVC-LLN 3.19 L [facility] ([facility]) FVC-%Pred-Pre 71 L [facility] ([facility]) Fev1-Pre 2.73 L [facility] ([facility]) Fev1-%Pred-Pre 80 L [facility] ([facility]) Fev1-LLN 2.78 L [facility] ([facility]) Fev6-Pred 3.90 L [facility] ([facility]) Fev6-Pre 2.80 L [facility] ([facility]) Fev6-%Pred-Pre 71 L [facility] ([facility]) Fev6-LLN 3.20 L [facility] ([facility]) Qdu9wjk-Vtn 97 % [facility] ([facility]) Lzi8wow-Fynz 86 % [facility] ([facility]) Uan1itg-Qqfw 100 % [facility] ([facility]) Rlu2wnt-QUV 76 % [facility] ([facility]) Kzu6woi-%Pred-Pre 113 % [facility] ([facility]) Akr8eaq-Xaf 100 % [facility] ([facility]) Wbc1ifx-%Pred-Pre 100 % [facility] ([facility]) FEFMax-Pred 7.05 L/E/sec [facility] ([facility]) FEFMax-LLN 5.28 L/E/sec [facility] ([facility]) FEFMax-Pre 4.87 L/E/sec [facility] ([facility]) FEFMax-%Pred-Pre 69 L/E/sec [facility] ([facility]) Psb5855-Zht 3.53 L/E/sec [facility] ([facility]) Vgm9790-Lyti 3.73 L/E/sec [facility] ([facility]) Gwk7901-%Pred-Pre 94 L/E/sec [facility] ([facility]) ExpTime-Pre 1.91 sec [facility] ([facility]) Kqc2254-MSM 2.45 L/E/sec [facility] ([facility]) Wrp5gbq1-Oma 97 % [facility] ([facility]) Vzj8wkj8-Ipet 87 % [facility] ([facility]) Ibn4jou5-%Pred-Pre 112 % [facility] ([facility]) Fzo0pok0-IAD 78 % [facility] ([facility]) ID Date Data Source [id number] 04/08/2021 08:16:00 AM EDT [facility] Name Value Range Interpretation Code Description Data Love rce(s) Supporting Document(s) SARS coronavirus 2 RNA [Presence] in Res piratory specimen by FE with probe detection [facility] This lab was ordered by [facility] a nd reported by [facility]. Procedure Social History Code Duration Value Status Description Data Source(s ) Smoking 06/28/2021 12:00:00 AM EDT Patient has never smoked co mpleted Patient has never smoked [facility] ([facility]) Vital Signs ID Date Data Source UNK Name Value Range Interpretation Code Description Data Source(s) Body surface area Derived from formula 1.74 m2 1.74 m2 [facility] ([facility]) Systolic blood pressure 112 mm[Hg] 112 mm[Hg] M EDENT ([facility]) Diastolic blood pressure 64 mm[Hg] 64 mm[Hg] [facility] ([facility]) Heart rate 74 /min 74 /[facility] Oxygen saturation in Arterial blood by Pulse oximetry 100 % 100 % [facility] ([facility]) Body height 65 [in_i] 65 [in_i] [facility] ([facility]) 5'5" Body weight 147.12 [lb_av] 147.12 [lb_av] MEDEN T ([facility]) Body mass index (BMI) [Ratio] 24.5 kg/m2 24.5 k g/m2 [facility] ([facility]) Golden body weight 125 [lb_av] 125 [lb_av] MEDEN T ([facility]) Body weight 66.736 kg 66.736 kg MED[facility] ([facility]) Diastolic blood pressure 66 mm[Hg] 66 mm[Hg] [facility] ([facility]) Heart rate 66 /min 66 /min [facility] ([facility]) Oxygen saturation in Arterial blood by Pulse oximetry 100 % 100 % [facility] ([facility]) Body height 65 [in_i] 65 [in_i] [facility] ([facility]) 5'5" Body weight 147.00 [lb_av] 147.00 [lb_av] MEDEN T ([facility]) Body mass index (BMI) [Ratio] 24.5 kg/m2 24.5 k g/m2 [facility] [place] body weight 125 [lb_av] 125 [lb_av] MEDEN T ([facility], ) Body weight 66.679 kg 66.679 kg BIANKA ([facility], ) Body surface area Derived from formula 1.74 m2 1.74 m2 BIANKA ([facility], ) Systolic blood pressure 112 mm[Hg] 112 mm[Hg] M SEBASTIAN ([facility], )
[2021-07-24] MEDS ORDERED: CETI-24 (12:08)
[2021-07-24] MEDS ORDERED: FLUT15.820 NARES (12:08)
[2021-07-24] MEDS ORDERED: ADV500INH (12:08)
--- NOTE | 2021-07-24 13:00 | REP ---
INDICATION: CHEST PAIN. COMPARISON: 04/08/2021 TECHNIQUE: Portable FINDINGS: The technique utilized in obtaining the radiograph has magnified the cardiac silhouette and accentuated the interstitial markings. The superior mediastinal structures are midline. The cardiac silhouette is unremarkable in size, shape, and position. The diaphragmatic surfaces of the lungs are regular, and the costophrenic angles are clear. The pulmonary irvin are clear. The imaged osseous structures are intact. IMPRESSION: There is no acute cardiopulmonary disease. <Electronically signed by Colt Neumann > 07/24/21 0710
[2021-07-24 13:12] LABS: BASO % 0.6 % (0.0-1.0); EOS % 0.9 % (0.0-3.0); HEMATOCRIT 40.2 % (36.0-47.0); HEMOGLOBIN 12.9 g/dl (12.0-15.5); LYMPH # 1.9 10^3/uL (1.5-5.0); LYMPH % 56.7 % (24.0-44.0); MEAN CORPUSCULAR HEMOGLOBIN 29.2 pg (27.0-33.0); MEAN CORPUSCULAR HGB CONC 32.1 g/dl (32.0-36.5); MONO # 0.3 10^3/uL (0.0-0.8); MONO % 9.6 % (2.0-8.0); NEUTROPHILS # 1.1 10^3/uL (1.5-8.5); NEUTROPHILS % 31.9 % (36.0-66.0); PLATELET COUNT, AUTOMATED 219 10^3/uL (150-450); RED BLOOD COUNT 4.42 10^6/uL (4.00-5.40); WHITE BLOOD COUNT 3.4 10^3/uL (4.0-10.0)
--- OUTSIDE RECORDS SUMMARY | 2021-07-24 13:13 | CCD ---
Author Author [facility] Organization [facility] Address Unknown Phone Unavailable Care Team Providers Care Hairspring I Inspector Name Role Phone Milvia Borrego MD Unavailable [...] is protected by Article 27-F of the [facility] Public Health law. If you continue you may have access to information: Regarding HIV / AIDS; Provided by facilities licensed or operated by the [facility] Office of Mental Health; or Provided by the [facility] Office for People With Developmental Disabilities. If such information is present, then the following [facility] mandated warning applies: This information has been [...] law may result in a fine or longterm sentence or both. A general authorization for the release of medical or other information is NOT sufficient authorization for further disc losure. Encounters Encounter Providers Location Date Indications Data Source(s ) Outpatient Attender: Milvia Archuleta/Emmanuel kc 06/28/2021 02:30:00 PM EDT [facility] ([facility], ) Outpatient Attender: Milvia Archuleta/Emmanuel kc 04/29/2021 10:00:00 AM EDT [facility] ([facility], ) Immunizations Vaccine Date Status Description Data Source(s) COVID-19 VACCINE Moderna 06/07/2021 12:00:00 AM EDT completed [facility] Vaccine Series Complete: YESThis Data wa s Submitted to [facility] Via [employer]. COVID-19 VACCINE Moderna 05/10/2021 12:00:00 AM EDT completed [facility] Vaccine Series Complete: NOThis Data was Submitted to [facility] Via [employer]. Medications Medication Brand Name Start Date Product Form Dose Route Admi nistrative Instructions Pharmacy Instructions Status Indications Reaction Description Data Source(s) montelukast 10 MG Oral Tablet [Singulair] Singulair 2020 12:00:00 AM EDT ORAL active [facility] ( [facility]) 60 ACTUAT Fluticasone propionate 0.5 MG/ ACTUAT / salmeterol 0.05 MG/ACTUAT Dry Powder Inhaler [Advair] Advair Diskus 06/28/2021 12:00:00 AM EDT RESPIRATORY active [facility] ([facility]) pantoprazole 20 MG Delayed Release Oral Tablet Pantoprazole Sodium 04/29/2021 12:00:00 AM EDT ORAL completed [facility] ([facility]) 60 ACTUAT Fluticasone propionate 0.25 MG /ACTUAT / salmeterol 0.05 MG/ACTUAT Dry Powder Inhaler [Advair] Advair Diskus 04/29/2021 12:00:00 AM EDT RESPIRATORY completed [facility] ([facility]) Insurance Providers Payer name Policy type / Coverage type Policy ID Covered libertarian ID Covered libertarian's relationship to campbell Policy Campbell Plan Information [facility] ACTIVE DUTY [id number] Problems, Conditions, and Diagnoses No Information Surgeries/Procedures Procedure Description Date Indications Data Source(s) Spirometry 06/28/2021 12:00:00 AM [facility] OFF[facility] OUTPATIENT VISIT 25 MINUTES 06/28/2021 12:00:00 AM EDT [facility] ([facility]) Spirometry 04/29/2021 12:00:00 [facility] OFFICE OUTPATIENT NEW 45 MINUTES 04/29/2021 12:00:00 A M EDT [facility] ([facility]) Results ID Date Data Source [id number] 06/28/2021 02:23:00 PM EDT [facility] ([facility]) Name Value Range Interpretation Code Description Data Love rce(s) Supporting Document(s) PDFReport Laboratory test result MED[facility] ([facility]) [id number] FVC-Pre 3.02 L [facility] ([facility]) FVC-Pred 3.91 L [facility] ([facility], ) FVC-%Pred-Pre 77 L [facility] ([facility], ) FVC-LLN 3.19 L [facility] ([facility], ) Fev1-Pre 2.63 L [facility] ([facility], ) Fev1-Pred 3.38 L [facility] ([facility], ) Fev1-%Pred-Pre 77 L [facility] ([facility], ) Fev1-LLN 2.78 L [facility] ([facility], ) Fev6-Pred 3.90 L [facility] ([facility], ) Fev6-Pre 3.02 L [facility] ([facility], ) Fev6-%Pred-Pre 77 L [facility] ([facility], ) Fev6-LLN 3.20 L [facility] ([facility], ) Ajs8jed-Ufeu 86 % [facility] ([facility], ) Wfl1gjg-Fxv 87 % [facility] ([facility], ) Zwr3bxp-%Pred-Pre 101 % [facility] ([facility]) Xbt3xco-YZE 76 % [facility] ([facility]) Lvz4miy-Ubd 100 % [facility] ([facility]) Oip7vwk-%Pred-Pre 100 % [facility] ([facility]) Zqr1est-Tytz 100 % [facility] ([facility], ) FEFMax-Pred 7.05 L/E/sec [facility] ([facility], ) FEFMax-Pre 3.74 L/E/sec [facility] ([facility], ) FEFMax-%Pred-Pre 53 L/E/sec [facility] ([facility]) Wgm9437-Arnq 3.73 L/E/sec [facility] ([facility]) FEFMax-LLN 5.28 L/E/sec [facility] ([facility], ) Nfi6386-Ddb 3.10 L/E/sec [facility] ([facility]) ExpTime-Pre 6.33 sec [facility] ([facility]) Yak1525-VQK 2.45 L/E/sec [facility] ([facility]) Vqw6360-%Pred-Pre 83 L/E/sec [facility] ([facility]) Cyb8qym9-%Pred-Pre 100 % [facility] ([facility]) Fbv4cne9-Yzw 87 % [facility] ([facility]) Gtk3qwj3-Imsm 87 % [facility] ([facility]) Wij9bht3-ADH 78 % [facility] ([facility]) ID Date Data Source [id number] 04/29/2021 09:45:00 AM EDT [facility] ([facility]) Name Value Range Interpretation Code Description Data Love rce(s) Supporting Document(s) FVC-Pred 3.91 L [facility] ([facility]) FVC-Pre 2.80 L [facility] ([facility]) PDFReport Laboratory test result [facility] ([facility]) Fev1-Pred 3.38 L [facility] ([facility]) FVC-LLN 3.19 L [facility] ([facility]) FVC-%Pred-Pre 71 L [facility] ([facility]) Fev1-Pre 2.73 L [facility] ([facility]) Fev1-%Pred-Pre 80 L [facility] ([facility]) Fev1-LLN 2.78 L [facility] ([facility]) Fev6-Pred 3.90 L [facility] ([facility]) Fev6-Pre 2.80 L [facility] ([facility]) Fev6-%Pred-Pre 71 L [facility] ([facility]) Fev6-LLN 3.20 L [facility] ([facility]) Hnt7xlf-Yqe 97 % [facility] ([facility]) Wdt1bvg-Twhb 86 % [facility] ([facility]) Rws9zps-Ozsu 100 % [facility] ([facility]) Pxa9byr-EAS 76 % [facility] ([facility]) Vpe3wip-%Pred-Pre 113 % [facility] ([facility]) Lag4eea-Nzb 100 % [facility] ([facility]) Rcn1vxy-%Pred-Pre 100 % [facility] ([facility]) FEFMax-Pred 7.05 L/E/sec [facility] ([facility]) FEFMax-LLN 5.28 L/E/sec [facility] ([facility]) FEFMax-Pre 4.87 L/E/sec [facility] ([facility]) FEFMax-%Pred-Pre 69 L/E/sec [facility] ([facility]) Kzp6527-Zod 3.53 L/E/sec [facility] ([facility]) Gls1258-Ufko 3.73 L/E/sec [facility] ([facility]) Hzm3958-%Pred-Pre 94 L/E/sec [facility] ([facility]) ExpTime-Pre 1.91 sec [facility] ([facility]) Uxe3318-PJG 2.45 L/E/sec [facility] ([facility]) Idw1afn6-Vtw 97 % [facility] ([facility]) Qdd9rsy0-Bpen 87 % [facility] ([facility]) Ndl4gro2-%Pred-Pre 112 % [facility] ([facility]) Cuk4nqf9-PKT 78 % [facility] ([facility]) ID Date Data Source [id number] 04/08/2021 08:16:00 AM EDT [facility] Name Value Range Interpretation Code Description Data Love rce(s) Supporting Document(s) SARS coronavirus 2 RNA [Presence] in Res piratory specimen by FE with probe [facility] lab was ordered by [facility] a nd reported by [facility]. Procedure Social History Code Duration Value Status Description Data Source(s ) Smoking 06/28/2021 12:00:00 AM EDT Patient has never smoked co mpleted Patient has never smoked [facility] ([facility]) Vital Signs ID Date Data Source UNK Name Value Range Interpretation Code Description Data Source(s) Body surface area Derived from formula 1.74 m2 1.74 m2 [facility] ([facility]) Systolic blood pressure 112 mm[Hg] 112 mm[Hg] M EDENT ([facility]) Diastolic blood pressure 64 mm[Hg] 64 mm[Hg] [facility] ([facility]) Heart rate 74 /min 74 /min [facility] Oxygen saturation in Arterial blood by Pulse oximetry 100 % 100 % [facility] ([facility]) Body height 65 [in_i] 65 [in_i] MED[facility] ([facility]) 5'5" Body weight 147.12 [lb_av] 147.12 [lb_av] MEDEN T ([facility]) Body mass index (BMI) [Ratio] 24.5 kg/m2 24.5 k g/m2 [facility] ([facility]) [place] body weight 125 [lb_av] 125 [lb_av] MEDEN T ([facility]) Body weight 66.736 kg 66.736 kg [facility] ([facility]) Diastolic blood pressure 66 mm[Hg] 66 mm[Hg] [facility] ([facility]) Heart rate 66 /min 66 /min [facility] ([facility]) Oxygen saturation in Arterial blood by Pulse oximetry 100 % 100 % [facility] ([facility]) Body height 65 [in_i] 65 [in_i] [facility] ([facility]) 5'5" Body weight 147.00 [lb_av] 147.00 [lb_av] MEDEN T ([facility]) Body mass index (BMI) [Ratio] 24.5 kg/m2 24.5 k g/m[facility] [place] body weight 125 [lb_av] 125 [lb_av] MEDEN T ([facility], ) Body weight 66.679 kg 66.679 kg BIANKA ([facility], ) Body surface area Derived from formula 1.74 m2 1.74 m2 BIANKA ([facility], ) Systolic blood pressure 112 mm[Hg] 112 mm[Hg] M SEBASTIAN ([facility], )
[2021-07-24 13:53] LABS: ALBUMIN 3.6 GM/DL (3.2-5.2); ALT/SGPT 16 U/L (12-78); BILIRUBIN,DIRECT 0.2 MG/DL (0.0-0.2); BLOOD UREA NITROGEN 8 MG/DL (7-18); CALCIUM LEVEL 8.8 MG/DL (8.5-10.1); CARBON DIOXIDE LEVEL 29 MEQ/L (21-32); CHLORIDE LEVEL 108 MEQ/L (98-107); CREATININE FOR GFR 0.78 MG/DL (0.55-1.30); GLOMERULAR FILTRATION RATE > 60.0 (>60); GLUCOSE, FASTING 88 MG/DL (70-100); LIPASE 65 U/L (73-393); POTASSIUM SERUM 4.4 MEQ/L (3.5-5.1); SODIUM LEVEL 141 MEQ/L (136-145); THYROID STIMULATING HORMONE 0.947 uIU/ML (0.358-3.740); TOTAL PROTEIN 7.1 GM/DL (6.4-8.2)
[2021-07-24 15:08] VITALS: BP 128/78
--- NOTE | 2021-07-25 05:48 | ECGEPIP ---
[facility] - ED Test Date: 2021-07-24 Pat Name: HERMINIO PADGETT Department: Room: - Gender: Female [place] Department Manager: CHIQUI : 1995 Requested By: RAMIRO Carr PA-C Order Number: [id number] Reading MD: Greg Trivedi Measurements Intervals [place] Rate: 56 P: 69 [place]: 128 QRS: 78 QRSD: 86 T: 36 QT: 392 QTc: 378 Interpretive Statements Sinus bradycardia INCOMPLETE RIGHT BUNDLE BRANCH BLOCK NO PRIORS FOR COMPARISON Electronically Signed on 07-25-2021 5:48:34 EDT by Greg Trivedi
== END 2021-07-24 15:00 | disposition home or self-care (01) ==
LOC: M ED 11:59
DX: F41.0 Panic disorder [episodic paroxysmal anxiety] (principal); R06.02 Shortness of breath; R07.89 Other chest pain; R00.1 Bradycardia, unspecified; I45.19 Other right bundle-branch block; R55 Syncope and collapse; Z79.899 Other long term (current) drug therapy
CPT/HCPCS: 36415; 71045; 80048; 80076; 83690; 84443; 84484; 85025; 93005; 99284; U0002

== ENCOUNTER 2021-07-29 15:48 | Emergency (ER) | payer OTHER ==
[~2021-07-29] VITALS: Ht 165.1 cm; Wt 61.8 kg
[~2021-07-29 15:48] MED LIST changes: +ADV500INH; +CETI-24; +FLUT15.820 NARES
[2021-07-29] MEDS ORDERED: ADV250INH (16:10)
[2021-07-29] MEDS ORDERED: HYDR-643 (16:10)
[2021-07-29 17:34] LABS: BASO % 0.6 % (0.0-1.0); EOS % 0.6 % (0.0-3.0); HEMATOCRIT 42.9 % (36.0-47.0); LYMPH # 2.1 10^3/uL (1.5-5.0); LYMPH % 57.2 % (24.0-44.0); MEAN CORPUSCULAR HEMOGLOBIN 29.4 pg (27.0-33.0); MEAN CORPUSCULAR HGB CONC 32.6 g/dl (32.0-36.5); MEAN CORPUSCULAR VOLUME 90.1 fl (80.0-96.0); MONO # 0.3 10^3/uL (0.0-0.8); MONO % 7.5 % (2.0-8.0); NEUTROPHILS # 1.2 10^3/uL (1.5-8.5); NEUTROPHILS % 34.1 % (36.0-66.0); PLATELET COUNT, AUTOMATED 242 10^3/uL (150-450); RED BLOOD COUNT 4.76 10^6/uL (4.00-5.40); WHITE BLOOD COUNT 3.6 10^3/uL (4.0-10.0)
[2021-07-29 17:53] LABS: BLOOD UREA NITROGEN 6 MG/DL (7-18); CALCIUM LEVEL 9.6 MG/DL (8.5-10.1); CARBON DIOXIDE LEVEL 26 MEQ/L (21-32); CHLORIDE LEVEL 106 MEQ/L (98-107); CREATININE FOR GFR 0.72 MG/DL (0.55-1.30); GLOMERULAR FILTRATION RATE > 60.0 (>60); GLUCOSE, FASTING 77 MG/DL (70-100); POTASSIUM SERUM 3.8 MEQ/L (3.5-5.1); SODIUM LEVEL 141 MEQ/L (136-145)
--- NOTE | 2021-07-29 18:53 | REP ---
INDICATION: pelvic pain. COMPARISON: None. TECHNIQUE: Transabdominal and endovaginal probe imaging. FINDINGS: The bladder measures 5.5 x 3.4 x 1.1 cm, under filled. Wall thickness of 7 mm may be due to the a cystitis or just under filling. Uterus is retroverted and measures 7.2 x 4.4 x 4.9 cm. Uterine contour with smooth. The endometrial stripe of 11 mm is homogeneous. No fluid the endometrial cavity or endocervical canal. Small amount of free fluid to the right side of the cul-de-sac. The right ovary is 2.6 x 1.5 x 1.8 cm and shows Doppler tracing with resistive index 0.51. No evidence of torsion. No right adnexal mass. Few subcentimeter follicles are visible. The left ovary is 2.5 x 1.8 x 2.2 cm. It has a Doppler tracing with resistive index of 0.57, also normal. There is no fluid adjacent to that ovary however there is a complex hypoechoic 1.8 x 1.3 x 1.3 cm focus within that could be a hemorrhagic follicle. Normal blood flow in that ovary. IMPRESSION: 1. Uterus retroverted without contour abnormality. The endometrial stripe ulna genius without fluid the endometrial cavity or endocervical canal. No uterine mass. There is a small amount of free fluid to the right side of the cul-de-sac. 2. Right ovary unremarkable with normal size, Doppler tracing and color flow. No torsion. 3. Left ovary shows a hypoechoic complex focus 1.8 x 1.3 x 1.3 cm which could be a hemorrhagic follicle or other. There is no color flow within it. There is normal color flow and Doppler tracing for the left ovary, no torsion. No fluid immediately adjacent to either ovary. <Electronically signed by Mor Mercedes > 07/29/21 [id number]
[2021-07-29] MEDS ORDERED: METR-265 PO (18:58)
[2021-07-29 19:06] VITALS: BP 118/72
[2021-07-29 19:46] LABS: GC DNA AMPLIFICATION NEGATIVE (NEGATIVE)
== END 2021-07-29 19:10 | disposition home or self-care (01) ==
LOC: M ED 15:48
DX: N83.292 Other ovarian cyst, left side (principal); N76.0 Acute vaginitis; N94.10 Unspecified dyspareunia; J45.909 Unspecified asthma, uncomplicated; G47.00 Insomnia, unspecified; Z79.51 Long term (current) use of inhaled steroids

== ENCOUNTER 2021-09-26 10:25 | Emergency (ER) | payer OTHER ==
[~2021-09-26] VITALS: Ht 165.1 cm; Wt 62.4 kg
[~2021-09-26 10:25] MED LIST changes: +ADV250INH; +HYDR-643; +METR-265 PO
[2021-09-26 13:06] VITALS: O2SAT 100
[2021-09-26 14:00] VITALS: BP 137/86
== END 2021-09-26 14:02 | disposition home or self-care (01) ==
LOC: M ED 10:25
DX: U07.1 COVID-19 (principal); J45.909 Unspecified asthma, uncomplicated; Z79.899 Other long term (current) drug therapy

== ENCOUNTER 2021-10-10 02:27 | Emergency (ER) | payer OTHER ==
[2021-10-10] MEDS ORDERED: DEXTROSE 50% 50 ML SYRINGE IV STA (02:39)
[2021-10-10] MEDS ORDERED: NS 1,000 ML IV ONE ×2 (02:40)
[2021-10-10 02:41] VITALS: O2SAT 100
[2021-10-10 02:42] LABS: ABG BASE EXCESS -4.6 (-2.0-2.0); ABG HCO3 19.2 MEQ/L (22.0-26.0); ABG O2 SATURATION 98.5 % (95.0-99.0); ABG PARTIAL PRESSURE O2 133.3 mmHg (75.0-100.0); ABG STANDARD HCO3 20.7 MEQ/L (22.0-26.0); ABG TOTAL CO2 20.2 MEQ/L (22.0-29.0); ABG pH (ARTERIAL) 7.396 UNITS (7.350-7.450)
[2021-10-10 02:56] LABS: BASO % 0.5 % (0.0-1.0); EOS % 0.9 % (0.0-3.0); HEMATOCRIT 40.4 % (36.0-47.0); HEMOGLOBIN 13.2 g/dl (12.0-15.5); LYMPH # 2.5 10^3/uL (1.5-5.0); LYMPH % 56.4 % (24.0-44.0); MEAN CORPUSCULAR HEMOGLOBIN 29.3 pg (27.0-33.0); MEAN CORPUSCULAR HGB CONC 32.7 g/dl (32.0-36.5); MEAN CORPUSCULAR VOLUME 89.8 fl (80.0-96.0); MONO # 0.4 10^3/uL (0.0-0.8); MONO % 7.9 % (2.0-8.0); NEUTROPHILS # 1.5 10^3/uL (1.5-8.5); NEUTROPHILS % 33.8 % (36.0-66.0); PLATELET COUNT, AUTOMATED 313 10^3/uL (150-450); WHITE BLOOD COUNT 4.4 10^3/uL (4.0-10.0)
[2021-10-10 03:21] LABS: HCG, SERUM QUALITATIVE NEGATIVE (NEGATIVE)
[2021-10-10 03:31] LABS: AMPHETAMINES LEVEL URINE NEGATIVE (NEGATIVE); BARBITURATES URINE NEGATIVE (NEGATIVE); BENZODIAZEPINES URINE NEGATIVE (NEGATIVE); CANNABINOIDS URINE NEGATIVE (NEGATIVE); COCAINE METABOLITE URINE NEGATIVE (NEGATIVE); METHADONE URINE NEGATIVE (NEGATIVE); OPIATES URINE NEGATIVE (NEGATIVE); PHENCYCLIDINE URINE NEGATIVE (NEGATIVE)
[2021-10-10 03:34] LABS: ALBUMIN 4.2 GM/DL (3.2-5.2); ALT/SGPT 15 U/L (12-78); BILIRUBIN,DIRECT 0.1 MG/DL (0.0-0.2); BILIRUBIN,TOTAL 0.2 MG/DL (0.2-1.0); BLOOD UREA NITROGEN 9 MG/DL (7-18); CALCIUM LEVEL 8.9 MG/DL (8.5-10.1); CARBON DIOXIDE LEVEL 26 MEQ/L (21-32); CHLORIDE LEVEL 110 MEQ/L (98-107); CREATININE FOR GFR 0.79 MG/DL (0.55-1.30); ETHYL ALCOHOL (ETHANOL) 0.166 % (0.000-0.010); GLOMERULAR FILTRATION RATE > 60.0 (>60); GLUCOSE, FASTING 84 MG/DL (70-100); POTASSIUM SERUM 3.8 MEQ/L (3.5-5.1); SALICYLATE LEVEL < 1.7 MG/DL (5.0-30.0); SODIUM LEVEL 141 MEQ/L (136-145); TOTAL PROTEIN 8.1 GM/DL (6.4-8.2)
[2021-10-10 03:35] LABS: ACETAMINOPHEN LEVEL < 2.0 UG/ML (10.0-30.0)
[2021-10-10 03:44] LABS: RSV AMPLIFICATION NEGATIVE (NEGATIVE)
[2021-10-10 05:30] VITALS: BP 120/60
== END 2021-10-10 06:10 | disposition home or self-care (01) ==
LOC: M ED 02:27
DX: F10.129 Alcohol abuse with intoxication, unspecified (principal); I45.19 Other right bundle-branch block; J01.20 Acute ethmoidal sinusitis, unspecified; Z79.899 Other long term (current) drug therapy